=== PATIENT | female | born 1965 ===

== ENCOUNTER 2021-03-05 12:22 | Emergency (ER) | payer OTHER, MEDICARE ==
[~2021-03-05] VITALS: Ht 172.7 cm; Wt 83.9 kg
[2021-03-05 13:25] VITALS: BP 105/55
== END 2021-03-05 15:41 | disposition left against medical advice (07) ==
LOC: ER 12:22
DX: M25.562 Pain in left knee (principal); M25.561 Pain in right knee; Z53.21 Procedure and treatment not carried out due to patient leaving prior to being seen by health care provider; W19.XXXA Unspecified fall, initial encounter; Y93.89 Activity, other specified; Y92.89 Other specified places as the place of occurrence of the external cause; Y99.8 Other external cause status
CPT/HCPCS: 73562